=== PATIENT | female | born 1970 | race African-American/Black ===

== ENCOUNTER 2017-02-03 10:44 | Emergency (ER) | payer MEDICARE, OTHER ==
[~2017-02-03] VITALS: Ht 167.6 cm; Wt 68.0 kg
[~2017-02-03 10:44] MED LIST: PROZAC; SEROQUEL
[2017-02-03 11:18] VITALS: BP 157/95
== END 2017-02-03 15:34 | disposition left against medical advice (07) ==
LOC: ER 10:44
DX: R07.89 Other chest pain (principal); Z53.21 Procedure and treatment not carried out due to patient leaving prior to being seen by health care provider; R42 Dizziness and giddiness
CPT/HCPCS: 93005

== ENCOUNTER 2017-02-05 09:13 | Emergency (ER) | payer MEDICARE, OTHER ==
[~2017-02-05] VITALS: Ht 170.2 cm; Wt 81.6 kg
[2017-02-05 09:30] VITALS: BP 136/76
== END 2017-02-05 10:00 | disposition left against medical advice (07) ==
LOC: ER 09:13 → EDBD 09:13 → ER 09:58
DX: R10.9 Unspecified abdominal pain (principal); Z53.21 Procedure and treatment not carried out due to patient leaving prior to being seen by health care provider